=== PATIENT | female | born 1985 | race African-American/Black ===

== ENCOUNTER 2019-05-01 14:01 | Emergency (ER) | payer MEDICAID ==
[~2019-05-01] VITALS: Ht 165.1 cm; Wt 79.4 kg
[~2019-05-01 14:01] MED LIST: NO HOME MEDS
[2019-05-01 14:17] VITALS: BP 102/77
[2019-05-01] MEDS ORDERED: ACETAMINOPHEN 500MG TABLET PO ONE (15:30)
[2019-05-01] MEDS ORDERED: IBUPROFEN 600MG TABLET PO ONE (15:30)
[2019-05-01] MEDS ORDERED: LIDOCAINE HCL 1% 20ML VIAL (Pyxis) INJ INFIL ONE (15:45)
[2019-05-01] MEDS ORDERED: ONDANSETRON 4MG ODT PO ONE (16:30)
[2019-05-01] MEDS ORDERED: MORPHINE SULFATE 10 MG/ML CPJ IM ONE (16:30)
[2019-05-01] MEDS ORDERED: MORPHINE SULFATE 10 MG/ML CPJ IM SCH (16:50)
== END 2019-05-01 17:34 | disposition home or self-care (01) ==
LOC: ER 14:01
DX: N75.8 Other diseases of Bartholin's gland (principal)
CPT/HCPCS: 56420; 96372; 99284; J2270; J3490; Q0162